=== PATIENT | female | born 1985 | race Caucasian/White ===

== ENCOUNTER 2020-02-16 21:02 | Emergency (ER) | payer OTHER ==
[~2020-02-16] VITALS: Ht 180.3 cm; Wt 72.6 kg
[2020-02-16] MEDS ORDERED: LEVO-T50 MCG PO (21:24)
[2020-02-16 23:00] VITALS: BP 118/52
== END 2020-02-16 23:01 | disposition home or self-care (01) ==
LOC: ER 21:02
DX: S80.11XA Contusion of right lower leg, initial encounter (principal); Z79.899 Other long term (current) drug therapy; Z88.8 Allergy status to other drugs, medicaments and biological substances; W21.01XA Struck by football, initial encounter; Y93.61 Activity, american tackle football; Y92.89 Other specified places as the place of occurrence of the external cause; Y99.8 Other external cause status